=== PATIENT | female | born 1965 | race Caucasian/White ===

== ENCOUNTER 2020-11-01 01:07 | Inpatient (IN) | payer MEDICARE, MEDICAID ==
[2020-11-01] MEDS ORDERED: Acetaminophen 650 MG Suppository ONE (01:18)
[2020-11-01] MEDS ORDERED: Acetaminophen 325 MG Suppository ONE (01:19)
[2020-11-01 02:09] LABS: Bilirubin Neg (Negative); Blood, Urine 25 (Negative); Clarity Cloudy (Clear); Glucose, Urine (Dipstick) Normal (Negative); Ketone, Urine Negative (Negative); Leukocyte 100 (Negative); Nitrite Positive (Negative); Protein, Urine (Dipstick) 30 mg/dl (Neg-Trace)
[2020-11-01] MEDS ORDERED: cefTRIAXone\\ROCEPHIN 1 GM VIAL ONE (02:09)
[2020-11-01 02:16] LABS: RBC/HPF 0-3 HPF (0-3); WBC/HPF 21-50 HPF (0-3)
[2020-11-01 02:17] LABS: Bacteria/HPF 3+ HPF (None Seen); Squamous Epithelial 0-3 HPF (0-3); Yeast-Hyphae 4+ HPF (None Seen)
[2020-11-01 02:19] LABS: #Neutrophils 11.4 10x3/uL (1.5-8.4); %Basophils 0.3 % (0.0-2.0); %Eosinophils 0.1 % (0.0-6.0); %Lymphocytes 11.9 % (18.0-47.0); %Monocytes 7.1 % (0.0-10.0); %Neutrophils 80.2 % (40.0-75.0); Hemoglobin 13.5 g/dL (12.0-15.5); Mean Corpuscular HGB CONC 31.2 g/dL (32.0-36.0); Mean Corpuscular Hemoglobin 27.1 pg (27.0-33.0); Mean Corpuscular Volume 86.8 fl (81.6-98.3); Mean Platelet Volume 10.1 fl (7.4-10.4); Platelet Count 192 10x3/uL (150-450); RBC Distribution Width 14.8 % (11.5-14.5); Red Blood Cell (RBC) Count 4.99 10x6/uL (3.90-5.03); White Blood Cell (WBC) Count 14.2 10x3/uL (3.5-10.5)
[2020-11-01 02:32] LABS: ALT (SGPT) 15 U/L (8-55); AST (SGOT) 13 U/L (5-34); Albumin 3.7 g/dL (3.5-5.0); Alkaline Phosphatase 75 U/L (40-110); Anion Gap 12 mmol/L (10-20); BUN (Urea Nitrogen) 17 mg/dL (9.8-20.1); Bilirubin, Total 0.6 mg/dL (0.2-1.2); Calc. Creatinine Clearance 0 mL/min (70-130); Calcium 8.9 mg/dL (7.8-10.44); Carbon Dioxide 30 mmol/L (22-29); Chloride 101 mmol/L (98-107); Globulin 3.1 g/dL (2.4-3.5); Glucose 124 mg/dL (70-105); Protein, Total 6.8 g/dL (6.0-8.3); Sodium 139 mmol/L (136-145)
[2020-11-01 03:00] LABS: SARS-CoV-2 NAA Rapid Test Not Detected (NotDetected)
[2020-11-01] MEDS ORDERED: Senokot S 8.6-50 MG TAB PO PRN (03:39)
[2020-11-01] MEDS: Lactated Ringer's 1,000 ML IV SCH ×3 (04:25→20:10)
[2020-11-01] MEDS: Cefepime 2 GM in Sodium Chloride 0.9% 100 ML IVPB SCH ×2 (04:26→17:48)
[2020-11-01 04:45] VITALS: BMI 33.8
[2020-11-01 08:29] LABS: Lactic Acid 1.6 mmol/L (0.5-2.2)
[2020-11-01] MEDS ORDERED: Dextroamphetamine/Amphetamine [Adderall] 30 MG Tablet PO SCH (09:00)
[2020-11-01] MEDS ORDERED: Glatiramer Acetate [Copaxone] 40 MG/ML Syringe SC SCH (09:00)
[2020-11-01] MEDS: Enoxaparin Sodium 40 MG/0.4 ML SYRINGE SC SCH (10:01)
[2020-11-01] MEDS ORDERED: Acetaminophen 650 MG Suppository PR PRN (13:46)
[2020-11-01] MEDS: Lorazepam 2 MG/ML VIAL SLOW IVP PRN ×2 (15:46→23:52)
[2020-11-01] MEDS: Baclofen 10 MG TAB PO SCH ×3 (17:35→20:37)
[2020-11-01] MEDS: busPIRone HCl 5 MG TAB PO SCH ×3 (17:36→20:37)
[2020-11-01] MEDS: Trospium 20 MG TAB PO SCH ×2 (17:36→20:37)
[2020-11-01] MEDS: CeleCOXIB 100 MG CAP PO SCH (17:43)
[2020-11-01] MEDS: DULoxetine 30 MG CAP PO SCH (17:44)
[2020-11-01] MEDS: Famotidine 20 MG TAB PO SCH ×2 (17:44→20:37)
[2020-11-01] MEDS: Diazepam 5 MG TAB PO SCH (20:37)
[2020-11-01] MEDS: Acetaminophen 325 MG TAB PO PRN (23:53)
[2020-11-02] MEDS: Lactated Ringer's 1,000 ML IV SCH ×2 (03:59→15:39)
[2020-11-02] MEDS: Cefepime 2 GM in Sodium Chloride 0.9% 100 ML IVPB SCH ×2 (03:59→15:54)
[2020-11-02 06:02] LABS: #Monocytes 1.6 10x3/uL (0.0-1.1); #Neutrophils 10.6 10x3/uL (1.5-8.4); %Basophils 0.1 % (0.0-2.0); %Eosinophils 0.1 % (0.0-6.0); %Lymphocytes 18.4 % (18.0-47.0); %Monocytes 10.5 % (0.0-10.0); %Neutrophils 70.3 % (40.0-75.0); Hemoglobin 12.3 g/dL (12.0-15.5); Mean Corpuscular HGB CONC 31.1 g/dL (32.0-36.0); Mean Corpuscular Volume 86.6 fl (81.6-98.3); Mean Platelet Volume 10.4 fl (7.4-10.4); Platelet Count 156 10x3/uL (150-450); RBC Distribution Width 15.5 % (11.5-14.5); Red Blood Cell (RBC) Count 4.56 10x6/uL (3.90-5.03); White Blood Cell (WBC) Count 15.1 10x3/uL (3.5-10.5)
[2020-11-02 06:04] LABS: Anion Gap 15 mmol/L (10-20); BUN (Urea Nitrogen) 10 mg/dL (9.8-20.1); Calc. Creatinine Clearance 104 mL/min (70-130); Calcium 8.9 mg/dL (7.8-10.44); Carbon Dioxide 25 mmol/L (22-29); Chloride 103 mmol/L (98-107); Glucose 98 mg/dL (70-105); Potassium 3.7 mmol/L (3.5-5.1); Sodium 139 mmol/L (136-145)
[2020-11-02] MEDS: busPIRone HCl 5 MG TAB PO SCH ×3 (09:22→21:03)
[2020-11-02] MEDS: Trospium 20 MG TAB PO SCH ×2 (09:22→21:02)
[2020-11-02] MEDS: Famotidine 20 MG TAB PO SCH ×2 (09:22→21:03)
[2020-11-02] MEDS: Baclofen 10 MG TAB PO SCH ×3 (09:22→21:02)
[2020-11-02] MEDS: CeleCOXIB 100 MG CAP PO SCH (09:23)
[2020-11-02] MEDS: DULoxetine 30 MG CAP PO SCH (09:23)
[2020-11-02] MEDS: Enoxaparin Sodium 40 MG/0.4 ML SYRINGE SC SCH (09:24)
[2020-11-02] MEDS ORDERED: Sodium Chloride 0.9% 500 ML IV ONE (13:45)
[2020-11-02] MEDS: Diazepam 5 MG TAB PO SCH (21:03)
[2020-11-03] MEDS: Lactated Ringer's 1,000 ML IV SCH ×4 (00:50→20:31)
[2020-11-03] MEDS: Cefepime 2 GM in Sodium Chloride 0.9% 100 ML IVPB SCH ×2 (04:37→16:30)
[2020-11-03] MEDS: Acetaminophen 325 MG TAB PO PRN (04:50)
[2020-11-03] MEDS ORDERED: Nystatin 500,000 UNITS/5 ML UDCUP ONE (08:54)
[2020-11-03] MEDS: busPIRone HCl 5 MG TAB PO SCH ×3 (09:06→20:29)
[2020-11-03] MEDS: Trospium 20 MG TAB PO SCH ×2 (09:06→20:29)
[2020-11-03] MEDS: Famotidine 20 MG TAB PO SCH ×2 (09:06→20:29)
[2020-11-03] MEDS: DULoxetine 30 MG CAP PO SCH (09:07)
[2020-11-03] MEDS: Nystatin 500,000 UNITS/5 ML UDCUP SSP SCH ×4 (09:07→20:29)
[2020-11-03] MEDS: Enoxaparin Sodium 40 MG/0.4 ML SYRINGE SC SCH (09:08)
[2020-11-03] MEDS: CeleCOXIB 100 MG CAP PO SCH (09:09)
[2020-11-03] MEDS: Baclofen 10 MG TAB PO SCH ×3 (09:09→20:29)
[2020-11-03] MEDS: Diazepam 5 MG TAB PO SCH (20:29)
[2020-11-04] MEDS: Cefepime 2 GM in Sodium Chloride 0.9% 100 ML IVPB SCH (04:56)
[2020-11-04] MEDS: Lactated Ringer's 1,000 ML IV SCH (04:56)
[2020-11-04 06:16] LABS: #Eosinphils 0.1 10x3/uL (0.0-0.5); #Monocytes 0.5 10x3/uL (0.0-1.1); %Basophils 0.4 % (0.0-2.0); %Eosinophils 1.6 % (0.0-6.0); %Monocytes 9.1 % (0.0-10.0); %Neutrophils 58.5 % (40.0-75.0); Hemoglobin 10.2 g/dL (12.0-15.5); Mean Corpuscular HGB CONC 30.8 g/dL (32.0-36.0); Mean Corpuscular Hemoglobin 26.5 pg (27.0-33.0); Mean Platelet Volume 10.5 fl (7.4-10.4); Platelet Count 131 10x3/uL (150-450); RBC Distribution Width 14.8 % (11.5-14.5); Red Blood Cell (RBC) Count 3.85 10x6/uL (3.90-5.03); White Blood Cell (WBC) Count 5.1 10x3/uL (3.5-10.5)
[2020-11-04] MEDS: CeleCOXIB 100 MG CAP PO SCH (09:56)
[2020-11-04] MEDS: Famotidine 20 MG TAB PO SCH (09:59)
[2020-11-04] MEDS: busPIRone HCl 5 MG TAB PO SCH (10:00)
[2020-11-04] MEDS: Baclofen 10 MG TAB PO SCH (10:00)
[2020-11-04] MEDS: DULoxetine 30 MG CAP PO SCH (10:00)
[2020-11-04] MEDS: Trospium 20 MG TAB PO SCH (10:00)
[2020-11-04] MEDS: Nystatin 500,000 UNITS/5 ML UDCUP SSP SCH (10:01)
[2020-11-04] MEDS: Enoxaparin Sodium 40 MG/0.4 ML SYRINGE SC SCH (10:01)
[2020-11-04 11:35] VITALS: BP 122/77; TEMP 98
== END 2020-11-04 14:45 | DRG 872 ==
LOC: CSHERS 01:07 → CSHTELE 03:31
PROVIDERS: ADMIT Family Medicine; ATTEND Family Medicine
DX: A41.9 Sepsis, unspecified organism (principal); N39.0 Urinary tract infection, site not specified; I69.359 Hemiplegia and hemiparesis following cerebral infarction affecting unspecified side; G93.40 Encephalopathy, unspecified; F41.9 Anxiety disorder, unspecified; G35 Multiple sclerosis; F02.80 Dementia in other diseases classified elsewhere, unspecified severity, without behavioral disturbance, psychotic disturbance, mood disturbance, and anxiety; K21.9 Gastro-esophageal reflux disease without esophagitis; M15.9 Polyosteoarthritis, unspecified; Z87.891 Personal history of nicotine dependence; F39 Unspecified mood [affective] disorder; Z20.822 Contact with and (suspected) exposure to COVID-19
CPT/HCPCS: 36415; 36416; 51701; 70450; 71045; 80048; 80053; 81003; 81015; 83605; 83735; 83880; 84484; 85025; 87040; 87086; 87205; 93005; 93010; 94760; 96365; 96367; J0692; J0696; J1650; J1956; J2060; J3370; J3475; J3490; J7120; U0002